=== PATIENT | female | born 1985 ===

== ENCOUNTER 2017-03-09 09:26 | Day surgery (SDC) | payer OTHER ==
[2017-03-09] MEDS ORDERED: Bupivacaine-Epi 0.25%-1:200,000 PF Inj ONE (11:24)
[2017-03-09] MEDS ORDERED: ceFAZolin IV 2 gm in Dextrose 1 GM/50 ML BAG IVPB ONE (11:25)
[2017-03-09] MEDS ORDERED: Lidocaine 1% Inj (20ml) ONE (11:25)
[2017-03-09] MEDS ORDERED: Bupivacaine HCl 0.25% PF (10 ml) Inj ONE (11:25)
[2017-03-09] MEDS ORDERED: Midazolam 2 MG/2 ML VIAL ONE (13:43)
[2017-03-09] MEDS ORDERED: Propofol 10 mg/ml Inj (20 ML) ONE (13:43)
[2017-03-09] MEDS ORDERED: Lactated Ringer's 1,000 ML IV ONE ×2 (14:00→14:50)
[2017-03-09] MEDS ORDERED: White Petrolatum/Mineral Oil Ophth Oint(3.5 gm) ONE (14:59)
[2017-03-09] MEDS ORDERED: Neostigmine Methylsulfate 3mg/3ml Syringe IV ONE (15:01)
--- NOTE | 2017-03-09 15:32 | PCM.SURG1 ---
Surgeon's Initial Post Op Note - Surgeon's Notes Surgeon: [employer] Data Specialist: Saad PGY3, Artur LAGUERRE Type of Anesthesia: General Endo, Local Pre-Operative Diagnosis: Cholelithiasis Operative Findings: normal anatomy Post-Operative Diagnosis: same Operation Performed: robotic assisted cholecystectomy w. laparoscopic TAP block Specimen/Specimens Removed: gallbladder Estimated Blood Loss: EBL {In ML}: 10 Blood Products Given: N/A Drains Used: No Drains Post-Op Condition: Good Date of Surgery/Procedure: 03/09/17 Time of Surgery/Procedure: 15:31
[2017-03-09] MEDS ORDERED: HYDROmorphone 0.5 mg/0.5 ml ISec IVP PRN (15:34)
--- NOTE | 2017-03-09 15:44 | OP ---
PROCEDURE DATE: 03/09/2017 PREOPERATIVE DIAGNOSIS: Chronic cholecystitis and cholelithiasis. POSTOPERATIVE DIAGNOSIS: Chronic cholecystitis and cholelithiasis. PROCEDURE: 1. Robotic cholecystectomy. 2. Laparoscopic TAP block placement. SURGEON: Mike Person MD PERSONAL DRIVER: SHEREEN León and Dimitris Valadez PGY-3 resident. TYPE OF ANESTHESIA: General endotracheal tube anesthesia. ESTIMATED BLOOD LOSS: Around 10 mL. DRAINS: None. PATHOLOGY: Gallbladder with gallstone was sent for pathology. COMPLICATIONS: None. INTRAOPERATIVE FINDINGS: The patient had changes of chronic cholecystitis and cholelithiasis. DESCRIPTION OF PROCEDURE: On intraoperative steps, this 32-year-old female who was diagnosed with chronic cholecystitis and cholelithiasis and the patient was consented for laparoscopic cholecystectomy, possible open, brought to the OR, placed supine on the operating table. After induction of the anesthesia, abdomen was prepped and draped in the usual sterile fashion. Supraumbilical transverse 1.5 cm incision was made, the fascia was incised, and robotic camera port was placed. Another three 8-mm port was placed in the upper abdomen, the robot was brought in, the arm 1 and arm 2 was docked, grasper, and dissector was introduced and through the console Calot's triangle dissection was done. The cystic duct and cystic artery were identified and clipped at 3 places and cut in between 2 clips near by gallbladder. The gallbladder was dissected free from the gallbladder fossa and there was a proper hemostasis in each and every part of the procedure. The gallbladder was taken out through the umbilical port site and sent off the table for pathology. Now the procedure was converted to laparoscopy and the laparoscopic TAP block was placed bilaterally and after that all the port was taken out under vision and Pneumo was deflated. Umbilical port site was closed in two layers, fascia with 0 Vicryl interrupted sutures, skin with a 4-0 Monocryl, and dry sterile dressing was applied. The patient tolerated the procedure well. Count of the instrument and gauze was correct. There was no apparent complication. The patient was extubated in OR and sent to the postanesthesia care unit in stable condition. Mike Person MD MTDD
[2017-03-09 17:48] VITALS: O2SAT 100
[2017-03-09] MEDS: Oxycodone/Acetaminophen 5/325 mg Tab PO STA ×2 (18:05→18:07)
[2017-03-09 18:07] VITALS: TEMP 97.6
[2017-03-09 18:46] VITALS: BP 100/61; PULSE 71; RESP 18
== END 2017-03-09 18:50 | disposition home or self-care (01) ==
LOC: C.SDS 09:26
PROVIDERS: ATTEND Surgery Surgical Critical Care
DX: K80.10 Calculus of gallbladder with chronic cholecystitis without obstruction (principal)
CPT/HCPCS: 47562; 88304; J0690; J2001; J2250; J2405; J2704; J2710; J3010; J7030; J7120

== ENCOUNTER 2017-03-16 17:15 | Emergency (ER) | payer OTHER ==
[2017-03-16 17:23] VITALS: BP 102/63; PULSE 75; RESP 20; O2SAT 96
[2017-03-16 17:24] VITALS: TEMP 97.9
--- NOTE | 2017-03-16 19:31 | C.PDOC ---
History Of Present Illness I went to see pt as soon as I signed up for her, but could not find her. I was informed by the staff that the pt had left without being seen. Time Seen by Provider: 03/16/17 19:24 Past Medical History Vital Signs: Last Vital Signs Temp 97.9 F 03/16/17 17:19 Pulse 75 03/16/17 17:19 Resp 20 03/16/17 17:19 BP 102/63 03/16/17 17:19 Pulse Ox 96 03/16/17 17:19 - Medical History PMH: Gastritis, Gall Bladder Disease, TIA (2015/DUE TO CONTROL IMPLANON/ PER PT.) Denies: Chronic Kidney Disease Surgical History: Cholecystectomy (lap rachele 03/09/2017) - [facility] Procedures EPISIOTOMY (09/09/14) MONITORING NOS (09/09/14) Family History: States: Unknown Family Hx - Social History Hx Alcohol Use: No Hx Substance Use: No ED Course And Treatment O2 Sat by Pulse Oximetry: 96 Disposition - Disposition Disposition: LEFT W/O BEING SEEN - ER ONLY Disposition Time: 19:30 Condition: UNKNOWN - Clinical Impression Clinical Impression: Patient left without being seen
== END 2017-03-16 19:30 | disposition left against medical advice (07) ==
LOC: C.ER 17:15
DX: R42 Dizziness and giddiness (principal); Z02.9 Encounter for administrative examinations, unspecified